=== PATIENT | female | born 2005 | race Caucasian/White ===

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

== ENCOUNTER 2024-01-14 08:17 | Outpatient (OUT) | payer MEDICAID, SELFPAY ==
--- OUTSIDE RECORDS SUMMARY | 2024-01-14 08:36 | XMS_ITS | CCD ---
Author Organization [facility] Care Team Providers Care Jet Inspector Name Role Phone DR JENNA SUMMERS Primary Care Unavailable DR LEBRON HYATT Consulting Unavailable CAMILLA PLEITEZ Attending Unavailable MAIK, CAMILLA Admitting Unavailable CAMILLA PLEITEZ Consulting Unavailable TREVER [...] Test Name Value Interpretation Reference Range Facil itlokesh CARDIAC CHASITY ADMITon 023 CK [Catalytic activity/Vol] 68 U/L Normal 26-192 [facility] Comment on above: Performed By: #### B KATHRIN DIAZ #### [facility] [address] [address] [address] Leilani Bess CK.MB [Mass/Vol] ng/mL Normal <=3.60 [facility] Comment on above: Performed By: #### B JOE CMADM #### [facility] [address] [address] [address] Leilani Bess HSTROP <4.0 Normal 4.0-51.3 [facility] Comment on above: Result Comment: CUT- OFF POINTS HAVE BEEN ESTABLISHED BASED ON THE FOURTH UNIVERSAL DEFINITIONS OF MYOCARDIAL INFARCTION. THE UPPER REFERENCE LIMIT (URL) OF TROPONIN, DEFINED THE 99TH PERCENTILE OF cTnI DISTRIBUTION IN A REFERENCE POPULATION, HAS BEEN CONFIRMED THE DECISION THRESHOLD FOR VA DIAGNOSIS. Performed By: #### B MP, CMADM #### [facility] [address] [place] [address] Dr. Leilani Bess LASHONDA 19 ng/mL Normal 9-82 [facility] Comment on above: Performed By: #### B MP, CMADM #### [facility] [address] [place] [address] Dr. Leilani Bess CBC AUTO DIFFon 10-25-2022 BASO # 0.0 103/ul Normal 0.0-0.1 [facility] Comment on above: Performed By: #### C BC #### [facility] [address] [place] [address] Dr. Leilani Bess Basophils/100 WBC (Bld) 0.3 % Normal 0.2-2.0 [facility] Comment on above: Performed By: #### C BC #### [facility] [address] [place] [address] Dr. Leilani Bess EO # 0.2 103/ul Normal 0.0-0.7 [facility] Comment on above: Performed By: #### C BC #### [facility] [address] [place] [address] Dr. Leilani Bess Eosinophils/100 WBC (Bld) 1.8 % Normal 0.9-7.0 [facility] Comment on above: Performed By: #### C BC #### [facility] [address] [place] [address] Dr. Leilani Bess Erythrocyte distribution width (RBC) [Ratio] 12.2 % Normal 11.0-15.0 [facility] Comment on above: Performed By: #### C BC #### [facility] [address] [place] [address] Dr. Leilani Bess Hematocrit (Bld) [Volume fraction] 41.1 % Normal 36.0-48.0 [facility] Comment on above: Performed By: #### C BC #### [facility] [address] [place] [address] Dr. Leilani Bess Hemoglobin (Bld) [Mass/Vol] 13.4 g/dL Normal 12.0-16.0 [facility] Comment on above: Performed By: #### C BC #### [facility] [address] [place] [address] Dr. Leilani Bess IG # 0.03 10e3/ul Normal 0.00-0.03 [facility] Comment on above: Performed By: #### C BC #### [facility] [address] [place] [address] Dr. Leilani Bess IG % 0.3 % Normal 0.0-0.5 [facility] Comment on above: Performed By: #### C BC #### [facility] [address] [place] [address] Dr. Leilani Bess LYMPH # 2.7 103/ul Normal 1.2-3.8 [facility] Comment on above: Performed By: #### C BC #### [facility] [address] [place] [address] Dr. Leilani Bess Lymphocytes/100 WBC (Bld) 31.3 % Normal 20.5-60.0 [facility] Comment on above: Performed By: #### C BC #### [facility] [address] [place] [address] Dr. Leilani Bess MANUAL DIFF REQ NO Normal [facility] Comment on above: Performed By: #### C BC #### [facility] [address] [place] [address] Dr. Leilani Bess MCH (RBC) [Entitic mass] 29.5 pg Normal 26.7-34.0 [facility] Comment on above: Performed By: #### C BC #### [facility] [address] [place] [address] Dr. Leilani Bess MCHC (RBC) [Mass/Vol] 32.6 g/dL Normal 29.9-35.2 [facility] Comment on above: Performed By: #### C BC #### [facility] [address] [place] [address] Dr. Leilani Bess MCV (RBC) [Entitic vol] 90.3 fL Normal 81.0-99.0 [facility] Comment on above: Performed By: #### C BC #### [facility] [address] [address] [address] Leilani Bess MONO # 0.7 103/ul Normal 0.3-0.8 [facility] Comment on above: Performed By: #### C BC #### [facility] [address] [address] [address] Leilani Bess Monocytes/100 WBC (Bld) 8.4 % Normal 1.7-12.0 [facility] Comment on above: Performed By: #### C BC #### [facility] [address] [place] [address] Dr. Leilani Bess NEUT # 5.0 103/ul Normal 1.4-6.5 [facility] Comment on above: Performed By: #### C BC #### [facility] [address] [place] [address] Dr. Leilani Bess Neutrophils/100 WBC (Bld) 57.9 % Normal 43.0-75.0 [facility] Comment on above: Performed By: #### C BC #### [facility] [address] [place] [address] Dr. Leilani Bess Platelet mean volume (Bld) [Entitic vol] 9.6 fL Normal 9.5-13.5 [facility] Comment on above: Performed By: #### C BC #### [facility] [address] [place] [address] Dr. Leilani Bess PLT 381 103/ul Normal 150-450 [facility] Comment on above: Performed By: #### C BC #### [facility] [address] [place] [address] Dr. Leilani Bess RBC 4.55 106/ul Normal 4.20-5.40 [facility] Comment on above: Performed By: #### C BC #### [facility] [address] [place] [address] Dr. Leilani Bess WBC 8.7 103/ul Normal 4.0-11.0 [facility] Comment on above: Performed By: #### C BC #### [facility] [address] [place] [address] Dr. Leilani Bess D-DIMERon 10-25-2022 D-DIMER 0.42 mg/L FEU Normal <=0.59 [facility] Comment on above: Performed By: #### D DIM #### [facility] [address] [place] [address] Dr. Leilani Bess D-DIMER COMMENTS SEE BELOW Normal [facility] Comment on above: Result Comment: Incr [...] hospitalization. Performed By: #### D DIM #### [facility] [address] [place] [address] Dr. Leilani Bess PROF CHEM 8 (BAS METB)on Anion gap [Moles/Vol] 13.3 mmol/L Normal [facility] Comment on above: Performed By: #### B KATHRIN DIAZ #### [facility] [address] [place] [address] Dr. Leilani Bess Calcium [Mass/Vol] 8.9 mg/dL Normal 8.5-10.1 [facility] Comment on above: Performed By: #### B KATHRIN DIAZ #### [facility] [address] [place] [address] Dr. Leilani Bess Chloride [Moles/Vol] 102 mmol/L Normal 98-107 [facility] Comment on above: Performed By: #### B KATHRIN DIAZ #### [facility] [address] [place] [address] Dr. Leilani Bess CO2 [Moles/Vol] 26.1 mmol/L Normal 21.0-32.0 [facility] Comment on above: Performed By: #### B KATHRIN DIAZ #### [facility] [address] [address] [address] Leilani Bess Creatinine [Mass/Vol] 0.69 mg/dL Normal 0.55-1.02 [facility] Comment on above: Performed By: #### B KATHRIN DIAZ #### [facility] [address] [place] [address] Dr. Leilani Bess EGFR-AF [place] >60 Normal >=60 [facility] Comment on above: Performed By: #### B JOE, KATHRIN #### [facility] [address] [address] [address] Leilani Bess EGFR-NON AF [place] >60 Normal >=60 [facility] Comment on above: Performed By: #### B KATHRIN DIAZ #### [facility] [address] [address] [address] Leilani Bess Glucose [Mass/Vol] 110 mg/dL Critically high 74-106 [facility] Comment on above: Performed By: #### B KATHRIN DIAZ #### [facility] [address] [address] [address] Leilani Bess Potassium [Moles/Vol] 3.4 mmol/L Critically low 3.5-5.1 [facility] Comment on above: Performed By: #### B KATHRIN DIAZ #### [facility] [address] [place] [address] Dr. Leilani Bess Sodium [Moles/Vol] 138 mmol/L Normal 136-145 [facility] Comment on above: Performed By: #### B KATHRIN DIAZ #### [facility] [address] [place] [address] Dr. Leilani Bess Urea nitrogen [Mass/Vol] 9.0 mg/dL Normal 6.4-19.3 [facility] Comment on above: Performed By: #### B KATHRIN DIAZ #### [facility] [address] [place] [address] Dr. Leilani Bess Urea nitrogen/Creatinine [Mass ratio] 13.0 mg/mg Normal [facility] Comment on above: Performed By: #### B KATHRIN DIAZ #### [facility] [address] [place] [address] [id number] [address] Leilani Bess XR CHEST 1 Von [...] by: TREVER ARGUETA Date: 2022-10-25 06:43 Normal [facility] Encounters Encounter Date Encounter Type Care Provider Facility Start: 10-25-2022 End: 10-25-[address] JENNA SUMMERS Facility: Payers Date Payer Category Payer Medicaid [id number] 1974 Unknown [id number] Summary Purpose Family History No Family History Records Found Advance Directives No Advanced Directives Records Found Additional Source Comments INFORMATION SOURCE (unrecogn ized section and content) DATE CREATED AUTHOR 10/27/2022 [facility] FOR RECORDS PERTAINING TO PATIENTS WHO ARE [...] BE BASED ON THE PRIMARY CLINICAL RECORDS. [facility] [employer] provides no warranty or guarantee of the accuracy or completeness of information in this document.
== END 2024-01-14 08:18 | disposition home or self-care (01) ==
LOC: CARD 08:17
PROVIDERS: PCP Nurse Practitioner Family; Visit Provider Nurse Practitioner Family
DX: R00.2 Palpitations (principal)
CPT/HCPCS: 93242

== ENCOUNTER 2024-03-25 06:26 | Outpatient (OUT) | payer MEDICAID, SELFPAY | END 2024-03-25 06:27 | disposition home or self-care (01) | PROVIDERS: PCP Nurse Practitioner Family; Visit Provider Internal Medicine Cardiovascular Disease | DX: R00.0 Tachycardia, unspecified (principal); R55 Syncope and collapse | CPT/HCPCS: 36415; 82533 ==

== ENCOUNTER 2024-03-27 13:39 | Outpatient (OUT) | payer MEDICAID, SELFPAY ==
--- NOTE | 2024-03-27 13:55 | CA_ITS ---
Patient Name: IKER ZULETA MR#: [id number] : 2005 Exam Date: 03/27/2024 Ordering Doctor: FEDERICA PALACIOS ECHOCARDIOGRAM REPORT PROCEDURE: CA ECHO DOPPLER COMPLETE INDICATIONS: Abnormal EKG, Tachycardia, Precordial pain COMPARISON: None. DESCRIPTION: COMPLETE ECHOCARDIOGRAM Real-time transthoracic echocardiography with 2D, M-mode, spectral and color flow Doppler performed. QUALITY: Technical quality was good. LEFT VENTRICLE: Normal chamber size. Normal left ventricular wall thickness. Global left ventricular systolic function is normal. LV EF: Estimated left ventricular ejection fraction is 60%. DIASTOLIC: Normal diastolic function. ATRIAL SEPTUM: LEFT ATRIUM: Normal chamber size. RIGHT ATRIUM: Normal chamber size. RIGHT VENTRICLE: Normal chamber size. Normal right ventricular systolic function. TRICUSPID VALVE: Normal mobility and thickness. No stenosis with trivial regurgitation. No evidence of pulmonary hypertension. RVSP 25 mmHg MITRAL VALVE: Normal mobility and thickness. No evidence of mitral valve stenosis. There is no mitral annular calcification. Trivial mitral regurgitation. AORTIC VALVE: Normal trileaflet appearance. No visible sclerosis. Normal leaflet mobility. No evidence of aortic valve stenosis. No aortic regurgitation. AORTIC ROOT: Normal diameter and appearance. PULMONIC VALVE: Normal thickness and mobility. No stenosis. Trivial regurgitation. PERICARDIUM: No evidence of pericardial effusion. IVC: Collapses with inspirations. Normal size. PLEURA: CONCLUSION: 1. Normal ventricular size and systolic function. LVEF is 60%. 2. Normal diastolic function. 3. No significant valvular dysfunction. 4. No pericardial effusion. Adult Echocardiography Procedure Report Left Ventricle LVEDD (3.7 - 5.6 cm): 4.35 cm LVESD (2.2 - 4.0 cm): 2.68 cm LVIVS thickness (0.6 - 1.2 cm): 0.77 cm LVPW thickness (0.5 - 1.0 cm): 0.85 cm e': 0.18 m/s E - e': 3.83 LVOT Max Gradient: 4.32 mm[Hg] LVOT Area (cm2): 1.04 m/s Peak Velocity (LVOT): 1.04 m/s Mean Velocity (LVOT): 0.69 m/s LVOT Diameter 1.96 cm Left Ventricular Ejection Fraction: 60 % Left Atrium LA Volume Index (2D A2C): 19.19 ml/m2 Left Atrium Systolic Dimension: 3.81 cm Mitral Valve MV E to A Ratio: 1.51, 1.52 Mitral Valve A-Wave Peak Velocity: 0.47 m/s Mitral Valve E-Wave Peak Velocity: 0.71 m/s Right Ventricle RV Internal Diastolic Dimension: 3.05 cm Aorta AO Root Diam: 2.81 cm Ascending Ao Diam: 2.54 cm Aortic Valve AoV Area (Peak [place]): 2.29 cm2, 2.29 cm2 AoV Area (VTI): 2.04 cm2, 2.04 cm2 Peak Velocity(Antegrade Flow): 1.37 m/s Peak Gradient(Antegrade Flow): 7.50 mm[Hg] Mean Velocity(Antegrade Flow): 0.95 m/s Mean Gradient(Antegrade Flow): 4.13 mm[Hg] Velocity Time Integral: 29.88 cm Tricuspid Valve Peak Velocity (Regurgitant Flow): 2.36 m/s, 2.25 m/s Pulmonic Valve Mean Gradient: 4.02 mm[Hg], 2.40 mm[Hg], 3.02 mm[Hg] Mean Velocity: 0.97 m/s, 0.72 m/s, 0.84 m/s Peak Velocity: 1.10 m/s Peak Gradient: 5.85 mm[Hg], 4.39 mm[Hg], 4.39 mm[Hg] Right Atrium Right Atrium Systolic Pressure: 39.91 ml, 39.91 ml Dictated by: Monster Rosario M.D. on 03/27/2024 at 17:59 Approved by: Monster Rosario M.D. on 03/27/2024 at 18:02
== END 2024-03-27 13:40 | disposition home or self-care (01) ==
LOC: CARD 13:40
PROVIDERS: PCP Nurse Practitioner Family; Visit Provider Internal Medicine Cardiovascular Disease
DX: R94.31 Abnormal electrocardiogram [ECG] [EKG] (principal); R00.0 Tachycardia, unspecified; R07.2 Precordial pain
CPT/HCPCS: 93306

== ENCOUNTER 2024-12-06 08:30 | Outpatient (OUT) | payer MEDICAID, SELFPAY ==
--- OUTSIDE RECORDS SUMMARY | 2024-12-06 08:35 | XMS_ITS | CCD ---
Author Organization 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 Name Role Phone DR JENNA SUMMERS Primary Care Unavailable DR LEBRON HYATT Consulting Unavailable CAMILLA PLEITEZ Attending Unavailable CAMILLA PLEITEZ Admitting Unavailable CAMILLA PLEITEZ Consulting Unavailable TREVER ARGUETA Consulting Unavailable FEDERICA PALACIOS Attending Unavailable FEDERICA PALACIOS Attending Unavailable Problems Problem Classification Problem Date Documented Date Episodic/Chronic Anxiety disorders (1 source) Anxiety disorder, unspecified; Translations: [ANXIETY DISORDER UNSPECIFIED] Onset: 10-26-2022 Chronic Cardiac dysrhythmias (4 sources) Palpitations; Translations: [Tachycardia, unspecified] Onset: 02-14-2024 Episodic Nonspecific chest pain (6 sources) Chest pain, unspecified; Translations: [Precordial pain] Onset: 10-25-2022 Episodic Nutritional deficiencies (2 sources) Vitamin D deficiency, unspecified; Translations: [Vitamin D deficiency, unspecified] Onset: 02-14-2024 Chronic Other nutritional; endocrine; and metabolic disorders (2 sources) Other obesity due to excess calories; Translations: [Other obesity due to excess calories] Onset: 02-14-2024 Chronic Other nutritional; endocrine; and metabolic disorders (2 sources) Body mass index (BMI) 31.0-31.9, adult; Translations: [Body mass index (BMI) 31.0-31.9, adult] Onset: 02-14-2024 Chronic Other screening for suspected conditions (not mental disorders or infectious disease) (2 sources) Abnormal electrocardiogram [ECG] [EKG]; Translations: [Abnormal electrocardiogram (ECG) (EKG)] Onset: 02-14-2024 Episodic Pleurisy; pneumothorax; pulmonary collapse (1 source) Pleurisy; Translations: [PLEURISY] Onset: 10-26-2022 Episodic Spondylosis; intervertebral disc disorders; other back problems (1 source) Dorsalgia, unspecified; Translations: [DORSALGIA UNSPECIFIED] Onset: 10-26-2022 Episodic Syncope (2 sources) Syncope and collapse; Translations: [Syncope and collapse] Onset: 02-14-2024 Episodic Results Test Name Value Interpretation Reference Range Facil ity Office Visiton 03-31-2024 Follow-up visit [id number] Ania Mcgowan 2005 F Date Provider Department Center 03/31/2024 FEDERICA ROSARIO [facility] Family History Problem Relation Age of Onset No Known Problems Mother No Known Problems Father Other Sister Family Status - Relation Status Age at Mother Father Sister Level of Service:52990 [place] OFFICE/OUTPATIENT ESTABLISHED MOD MDM 30 MIN Normal [facility] Office Visiton 02-14-2024 Follow-up visit [id number] Ania Mcgowan 2005 F Date Provider Department Center 02/14/2024 FEDERICA ROSARIO [facility] Family History Problem Relation Age of Onset No Known Problems Mother No Known Problems Father Other Sister Family Status - Relation Status Age at Mother Father Sister Level of Service:84730 [place] OFFICE/OUTPATIENT NEW MODERATE MDM 45 MINUTES Normal [facility] CARDIAC CHASITY ADMITon 023 CK [Catalytic activity/Vol] 68 U/L Normal 26-192 [facility] Comment on above: Performed By: #### B JOE, CMADM #### [facility] [address] [address] [address] Leilani Bess CK.MB [Mass/Vol] ng/mL Normal <=3.60 [facility] Comment on above: Performed By: #### B MP, CMADM #### [facility] [address] [place], [place] [address] Dr. Leilani Bess HSTROP <4.0 Normal 4.0-51.3 [facility] Comment on above: Result Comment: CUT- OFF POINTS HAVE BEEN ESTABLISHED BASED ON THE FOURTH UNIVERSAL DEFINITIONS OF MYOCARDIAL INFARCTION. THE UPPER REFERENCE LIMIT (URL) OF TROPONIN, DEFINED THE 99TH PERCENTILE OF cTnI DISTRIBUTION IN A REFERENCE POPULATION, HAS BEEN CONFIRMED THE DECISION THRESHOLD FOR PA DIAGNOSIS. Performed By: #### B JOE, CMADM #### [facility] [address] [address] [address] Leilani Bess LASHONDA 19 ng/mL Normal 9-82 [facility] Comment on above: Performed By: #### B JOE, CMADM #### [facility] [address] [address] [address] Leilani Bess CBC AUTO DIFFon 10-25-2022 BASO # 0.0 103/ul Normal 0.0-0.1 [facility] Comment on above: Performed By: #### C BC #### [facility] [address] [place] [address] Dr. Leilani Bess Basophils/100 WBC (Bld) 0.3 % Normal 0.2-2.0 [facility] Comment on above: Performed By: #### C BC #### [facility] [address] [place] [address] Dr. Leilani Bess EO # 0.2 103/ul Normal 0.0-0.7 [facility] Comment on above: Performed By: #### C BC #### [facility] [address] [place] [address] Dr. Leilani Bess Eosinophils/100 WBC (Bld) 1.8 % Normal 0.9-7.0 [facility] Comment on above: Performed By: #### C BC #### [facility] [address] [place] [address] Dr. Leilani Bess Erythrocyte distribution width (RBC) [Ratio] 12.2 % Normal 11.0-15.0 [facility] Comment on above: Performed By: #### C BC #### [facility] [address] [place] [address] Dr. Leilani Bess Hematocrit (Bld) [Volume fraction] 41.1 % Normal 36.0-48.0 [facility] Comment on above: Performed By: #### C BC #### [facility] [address] [place] [address] Dr. Leilani Bess Hemoglobin (Bld) [Mass/Vol] 13.4 g/dL Normal 12.0-16.0 [facility] Comment on above: Performed By: #### C BC #### [facility] [address] [place] [address] Dr. Leilani Bess IG # 0.03 10e3/ul Normal 0.00-0.03 [facility] Comment on above: Performed By: #### C BC #### [facility] [address] [place] [address] Dr. Leilani Bess IG % 0.3 % Normal 0.0-0.5 [facility] Comment on above: Performed By: #### C BC #### [facility] [address] [place] [address] Dr. Leilani Bess LYMPH # 2.7 103/ul Normal 1.2-3.8 [facility] Comment on above: Performed By: #### C BC #### [facility] [address] [place] [address] Dr. Leilani Bess Lymphocytes/100 WBC (Bld) 31.3 % Normal 20.5-60.0 [facility] Comment on above: Performed By: #### C BC #### [facility] [address] [place] [address] Dr. Leilani Bess MANUAL DIFF REQ NO Normal [facility] Comment on above: Performed By: #### C BC #### [facility] [address] [place] [address] Dr. Leilani Bess MCH (RBC) [Entitic mass] 29.5 pg Normal 26.7-34.0 [facility] Comment on above: Performed By: #### C BC #### [facility] [address] [place] [address] Dr. Leilani Bess MCHC (RBC) [Mass/Vol] 32.6 g/dL Normal 29.9-35.2 [facility] Comment on above: Performed By: #### C BC #### [facility] [address] [place] [address] Dr. Leilani Bess MCV (RBC) [Entitic vol] 90.3 fL Normal 81.0-99.0 [facility] Comment on above: Performed By: #### C BC #### [facility] [address] [place] [address] Dr. Leilani Bess MONO # 0.7 103/ul Normal 0.3-0.8 [facility] Comment on above: Performed By: #### C BC #### [facility] [address] [place] [address] Dr. Leilani Bess Monocytes/100 WBC (Bld) 8.4 % Normal 1.7-12.0 [facility] Comment on above: Performed By: #### C BC #### [facility] [address] [place] [address] Dr. Leilani Bess NEUT # 5.0 103/ul Normal 1.4-6.5 [facility] Comment on above: Performed By: #### C BC #### [facility] [address] [place] [address] Dr. Leilani Bess Neutrophils/100 WBC (Bld) 57.9 % Normal 43.0-75.0 [facility] Comment on above: Performed By: #### C BC #### [facility] [address] [place] [address] Dr. Leilani Bess Platelet mean volume (Bld) [Entitic vol] 9.6 fL Normal 9.5-13.5 [facility] Comment on above: Performed By: #### C BC #### [facility] [address] [place] [address] Dr. Leilani Bess PLT 381 103/ul Normal 150-450 [facility] Comment on above: Performed By: #### C BC #### [facility] [address] [place] [address] Dr. Leilani Bess RBC 4.55 106/ul Normal 4.20-5.40 [facility] Comment on above: Performed By: #### C BC #### [facility] [address] [place] [address] Dr. Leilani Bess WBC 8.7 103/ul Normal 4.0-11.0 [facility] Comment on above: Performed By: #### C BC #### [facility] [address] [place] [address] Dr. Leilani Bess D-DIMERon 10-25-2022 D-DIMER 0.42 mg/L FEU Normal <=0.59 [facility] Comment on above: Performed By: #### D DIM #### [facility] [address] [place] [address] Dr. Leilani Bess D-DIMER COMMENTS SEE BELOW Normal [facility] Comment on above: Result Comment: Incr [...] hospitalization. Performed By: #### D DIM #### [facility] [address] [place] [address] Dr. Leilani Bess PROF CHEM 8 (BAS METB)on Anion gap [Moles/Vol] 13.3 mmol/L Normal [facility] Comment on above: Performed By: #### B KATHRIN DIAZ #### [facility] [address] [place] [address] Dr. Leilani Bess Calcium [Mass/Vol] 8.9 mg/dL Normal 8.5-10.1 [facility] Comment on above: Performed By: #### B KATHRIN DIAZ #### [facility] [address] [place] [address] Dr. Leilani Bess Chloride [Moles/Vol] 102 mmol/L Normal 98-107 [facility] Comment on above: Performed By: #### B KATHRIN DIAZ #### [facility] [address] [place] [address] Dr. Leilani Bess CO2 [Moles/Vol] 26.1 mmol/L Normal 21.0-32.0 [facility] Comment on above: Performed By: #### B KATHRIN DIAZ #### [facility] [address] [place] [address] Dr. Leilani Bess Creatinine [Mass/Vol] 0.69 mg/dL Normal 0.55-1.02 [facility] Comment on above: Performed By: #### B JOE, KATHRIN #### [facility] [address] [address] [address] Leilani Bess EGFR-AF DANISH >60 Normal >=60 [facility] Comment on above: Performed By: #### B JOE, VIVIENDM #### [facility] [address] [address] [address] Leilani Bess EGFR-NON AF DANISH >60 Normal >=60 [facility] Comment on above: Performed By: #### B JOE, KATHRIN #### [facility] [address] [place] [address] Dr. Leilani Bess Glucose [Mass/Vol] 110 mg/dL Critically high 74-106 [facility] Comment on above: Performed By: #### B KATHRIN DIAZ #### [facility] [address] [place] [address] Dr. Leilani Bess Potassium [Moles/Vol] 3.4 mmol/L Critically low 3.5-5.1 [facility] Comment on above: Performed By: #### B KATHRIN DIAZ #### [facility] [address] [place] [address] Dr. Leilani Bess Sodium [Moles/Vol] 138 mmol/L Normal 136-145 [facility] Comment on above: Performed By: #### B JOE, KATHRIN #### [facility] [address] [place] [address] Dr. Leilani Bess Urea nitrogen [Mass/Vol] 9.0 mg/dL Normal 6.4-19.3 [facility] Comment on above: Performed By: #### B KATHRIN DIAZ #### [facility] [address] [place] [address] Dr. Leilani Bess Urea nitrogen/Creatinin e [Mass ratio] 13.0 mg/mg Normal [facility] Comment on above: Performed By: #### B KATHRIN DIAZ #### [facility] [address] [place] [address] Dr. Leilani Bess XR CHEST 1 Von [...] by: TREVER ARGUETA Date: 2022-10-25 06:43 Normal [facility] Encounters Encounter Date Encounter Type Care Provider Facility Start: 03-31-2024 End: 03-31-2024 ambulatory [facility] Start: 02-14-2024 End: 02-14-2024 ambulatory [facility] Start: 10-25-2022 End: 10-25-[address] JENNA SUMMERS Facility: Payers Date Payer Category Payer Medicaid [id number] 2022 Medicaid [id number] 1974 Unknown [id number] Progress note 03-31-2024 Note Date & Type Note Facility 03-31-2024 Note [facility] Note Reason for cardiology consult: Patient here for follow up labs and echo. Chief Complaint: Dizziness and shortness of breath HPI: Ania Mcgowan is a 18 y.o. female who is here today for follow-up visit. She states that she still feels lightheaded all the time and shortness of breath when she stands for a long time. She has been walking every day for about 30 minutes and she thinks that she is able to walk persistently for a longer period of time. She denies any syncope. She has been increasing her fluid intake and salt intake. She did not receive the compression stockings yet. She is willing to retry Lexapro since it helped with her symptoms in the 02/14/2024 visit Ania Mcgowan is a 18 y.o. female, she states that since she was in elementary school she always felt that she was overheated when she is outside especially in the sun then she passes out. This has been going on all her life. She states every time she is standing particularly in the sun even if she was inside she feels heated, dizzy and she has chest pain sometimes pressure sometimes shooting pain, sometimes she feels little nauseated then she passes out and she wakes up on the ground. 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 Usually she sits down and sometimes she has a fan on to help her not to pass out. She does not drink any caffeine. She always drinks a lot of fluids. She does not drink any alcohol. She denies any illicit drugs. That never happened while she is sitting or driving. Sometimes when she is sitting she feels that her heart rate goes up. Recently she had blood tests all of them were normal except low vitamin D and she is started on vitamin D 5000 units daily. Also she lost about 30 pounds over the last few months by watching her diet and moving more during her job. Also she had a 5-day Holter monitor which showed sinus rhythm and occasional sinus tachycardia. She had few triggered events most of them showed sinus tachycardia. She does not exercise on a regular basis because she gets heated quickly and she feels dizzy. She states that when she was on Lexapro for 1 year she did not have any syncopal episodes but she gained weight therefore she stopped it. She denies exertional dyspnea. She denies orthopnea or paroxysmal nocturnal dyspnea or legs edema or leg discomfort with exertion. She was told that she snores occasionally. She feels little sleepy during the daytime but does not fall asleep quickly. She is not aware that she stops breathing. Her sister had POTS but her symptoms were milder and she feels better now. She is currently 19 years old Past Medical History She has a past medical history of Constipation, Diarrhea, Nausea, and Palpitations. Surgical History She has no past surgical history on file. Social History She reports that she has never smoked. She has never used smokeless tobacco. She reports that she does not currently use alcohol. No history on file for drug use. Family History Family History Problem Relation Name Age of Onset No Known Problems Mother No Known Problems Father Other (POTS) Sister Allergies Patient has no known allergies. Medications Current Outpatient Medications: ergocalciferol, vitamin D2, (VITAMIN D2 ORAL), Take 5,000 Units by mouth in the morning., Disp: , Rfl: Last Recorded Vitals Visit Vitals Smoking Status Never Physical Examination: GENERAL: alert and oriented x3, well developed, in no acute distress. HEAD: atraumatic, normocephalic. EYES: LUKE, EOMI. NECK: trachea midline, no JVD present, no carotid bruits present. CARDIAC: S1, S2 present. RRR. No murmur, rubs, or gallops. RESPIRATORY: CTAB, no increased effort of breathing, no rales, rhonchi, or wheezing. ABDOMEN: soft, nontender, nondistended. EXTREMITIES: no lower extremity edema, peripheral pulses are 2+ bilaterally. No rash/skin discoloration present. NEURO: strength/sensation equal and symmetric in bilateral upper and lower extremities. PSYCH: appropriate mood, affect, and judgement. Labs: White blood count 7.3, hemoglobin 13, hematocrit 39, platelets 466 Sodium 140, potassium 4, BUN 9, creatinine 0.78, glucose 91, GFR above 60, calcium 8.9 HbA1c 5.2% Insulin 22.5 normal Total protein 8.3, albumin 3.7, total bilirubin 0.5, AST 22, ALT 38 Vitamin D 18.3 low Triglyceride 39, cholesterol 175, LDL 119, HDL 49 TSH 2.003, free T46.4, free T32.92 Last Images: Echo 03/27/2024 EKG today 02/14/2024 showed normal sinus rhythm, heart rate 82 bpm, short TX interval, inverted T waves in leads V1 to V3, consider anteroseptal ischemia, abnormal EKG EKG 10/25/2022 showed sinus tachycardia, low voltage, nonspecific ST changes. 5 day Holter 01/28/2024 Assessment and Plan: 1. Syncope and collapse, clinically appears to represents neurocar (more content not included)... [facility] Progress note 02-14-2024 Note Date & Type Note Facility 02-14-2024 Note New patient here to establish care. She is referred from Fanta Monzon CNP for tachycardia. Recently wore 5 day Holter monitor. She gets episodes of syncope, palpitations, chest pain, and lightheadedness. States she stays hydrated but her body feels like it overheats very quickly and easily . Her sister has POTS she says. No cardiac issues within her family members that she's aware of. Her HR did jump up to 126 when she stood up in the office today, but quickly went back down to 92. Review of Systems Cardiovascular: Positive for chest pain ( electrical shocks ), dyspnea on exertion, irregular heartbeat, palpitations and syncope. Respiratory: Positive for cough and shortness of breath. Neurological: Positive for dizziness, headaches and light-headedness. Allergic/Immunologic: Positive for environmental allergies. All other systems reviewed and are negative. [facility] Progress note 02-14-2024 Note Date & Type Note Facility 02-14-2024 Note [facility] Note Reason for cardiology consult: Syncope, palpitation, and chest pain Chief Complaint: Dizziness, chest pain, palpitation, and syncope HPI: Ania Mcgowan is a 18 y.o. female, she states that since she was in elementary school she always felt that she was overheated when she is outside especially in the sun then she passes out. This has been going on all her life. She states every time she is standing particularly in the sun even if she was inside she feels heated, dizzy and she has chest pain sometimes pressure sometimes shooting pain, sometimes she feels little nauseated then she passes out and she wakes up on the ground. 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 Usually she sits down and sometimes she has a fan on to help her not to pass out. She does not drink any caffeine. She always drinks a lot of fluids. She does not drink any alcohol. She denies any illicit drugs. That never happened while she is sitting or driving. Sometimes when she is sitting she feels that her heart rate goes up. Recently she had blood tests all of them were normal except low vitamin D and she is started on vitamin D 5000 units daily. Also she lost about 30 pounds over the last few months by watching her diet and moving more during her job. Also she had a 5-day Holter monitor which showed sinus rhythm and occasional sinus tachycardia. She had few triggered events most of them showed sinus tachycardia. She does not exercise on a regular basis because she gets heated quickly and she feels dizzy. She states that when she was on Lexapro for 1 year she did not have any syncopal episodes but she gained weight therefore she stopped it. She denies exertional dyspnea. She denies orthopnea or paroxysmal nocturnal dyspnea or legs edema or leg discomfort with exertion. She was told that she snores occasionally. She feels little sleepy during the daytime but does not fall asleep quickly. She is not aware that she stops breathing. Her sister had POTS but her symptoms were milder and she feels better now. She is currently 19 years old Cardiology ROS: GENERAL: Denies fever, chills, night sweats, weight loss. HEENT: Denies changes in vision, photophobia, changes in hearing, epistaxis, oral bleeding. CARDIOVASCULAR: She reports dizziness when she is standing up particularly in hot environment associated with chest pain and palpitation many times it ends up with passing out, she denies exertional dyspnea, orthopnea/PND, lower extremity edema, RESPIRATORY: Denies SOB, coughing, wheezing GI: Denies abdominal pain, nausea/vomiting, heartburn, melena/hematochezia. RENAL: Denies dysuria, hematuria, flank pain. MSK: Denies muscle weakness/pain, arthralgias/joint pain. NEUROLOGIC: Denies LOC, weakness, numbness, headaches. SKIN: Denies abnormal rashes or bleeding. PSYCH: Denies significant anxiety, depression, sleep disturbances. Past Medical History She has a past medical history of Constipation, Diarrhea, Nausea, and Palpitations. Surgical History She has no past surgical history on file. Social History She reports that she has never smoked. She has never used smokeless tobacco. She reports that she does not currently use alcohol. No history on file for drug use. Family History Family History Problem Relation Name Age of Onset No Known Problems Mother No Known Problems Father Other (POTS) Sister Allergies Patient has no known allergies. Medications Current Outpatient Medications: ergocalciferol, vitamin D2, (VITAMIN D2 ORAL), Take 5,000 Units by mouth in the morning., Disp: , Rfl: Last Recorded Vitals Visit Vitals 02/14/2024 10:35 AM 02/14/2024 10:42 AM 02/14/2024 10:43 AM Excluded from GC Excluded from GC Excluded from GC BP 108/72 122/78 128/78 BP Location Right arm Right arm Right arm Patient Position Lying Sitting Standing Pulse 87 90 92 SpO2 100 % Weight 88.5 kg (195 lb) Height 1.676 m (5' 6 ) Age Percentiles Weight 97 % (Z= 1.87) Height 75 % (Z= 0.67) BMI 95 % (Z= 1.66) Other Vitals BMI 31.47 kg/m2 BSA 2.03 m2 BP 128/78 (BP Location: Right arm, Patient Position: Standing) Pulse 92 Ht 1.676 m (5' 6 ) Wt 88.5 kg (195 lb) SpO2 100% BMI 31.47 kg/m??? Smoking Status Never BSA 2.03 m??? Physical Examination: GENERAL: alert and oriented x3, well developed, in no acute distress. HEAD: atraumatic, normocephalic. EYES: LUKE, EOMI. NECK: trachea midline, no JVD present, no carotid bruits present. CARDIAC: S1, S2 present. RRR. No murmur, rubs, or gallops. RESPIRATORY: CTAB, no increased effort of breathing, no rales, rhonchi, or wheezing. ABDOMEN: soft, nontender, nondistended. EXTREMITIES: no lower extremity edema, peripheral pulses are 2+ bilaterally. No rash/skin discoloration present. NEURO: strength/sensation equal and s (more content not included)... [facility] [facility] Purpose Family History No Family History Records FoundNo Family History Records Found Advance Directives No Advanced Directives Records FoundNo Advanced Directives Records Found Additional Source Comments INFORMATION SOURCE (unrecogn ized section and content) DATE CREATED AUTHOR 10/27/2022 [facility] DATE CREATED AUTHOR AUTHOR'S ORGANIZ ATION 04/04/[address] [facility] FOR RECORDS PERTAINING TO PATIENTS [...] BE BASED ON THE PRIMARY CLINICAL RECORDS. [facility]. provides no warranty or guarantee of the accuracy or completeness of information in this document.
[2024-12-06 08:50] LABS: Basophils Percent Auto 0.8 % (0.2-2.0); Eosinophils Absolute Auto 0.1 10^3/uL (0.0-0.7); Eosinophils Percent Auto 2.1 % (0.9-7.0); Hematocrit 39.9 % (36.0-48.0); Hemoglobin 13.7 g/dL (12.0-16.0); Immature Granulocytes Abs Auto 0.01 10^3/uL (0.00-0.03); Immature Granulocytes Pct Auto 0.2 % (0.0-0.5); Lymphocytes Absolute Auto 1.6 10^3/uL (1.2-3.8); Lymphocytes Percent Auto 30.2 % (20.5-60.0); Mean Corpuscular HGB Conc 34.3 g/dL (29.9-35.2); Mean Corpuscular Hemoglobin 30.2 pg (26.7-34.0); Mean Corpuscular Volume 88.1 fL (81.0-99.0); Monocytes Absolute Auto 0.4 10^3/uL (0.3-0.8); Monocytes Percent Auto 7.9 % (1.7-12.0); Neutrophils Absolute Auto 3.1 10^3/uL (1.4-6.5); Neutrophils Percent Auto 58.8 % (43.0-75.0); Platelet Count 297 10^3/uL (150-450); Red Blood Count 4.53 10^6/uL (4.20-5.40); White Blood Count 5.3 10^3/uL (4.0-11.0)
[2024-12-06 08:58] LABS: Estimated Average Glucose 100 mg/dL; Glycohemoglobin A1C 5.1 % (4.5-6.2)
[2024-12-06 09:21] LABS: Alanine Aminotransferase 21 U/L (14-59); Albumin Globulin Ratio 0.9; Albumin Level 3.8 g/dL (3.4-5.0); Alkaline Phosphatase 71 U/L (46-116); Anion Gap 11.8; Aspartate Amino Transferase 14 U/L (15-37); BUN Creatinine Ratio 17.1; Bilirubin Total 0.5 mg/dL (0.2-1.0); Calcium 9.1 mg/dL (8.5-10.1); Carbon Dioxide 25.5 mmol/L (21.0-32.0); Chloride 104 mmol/L (98-107); Estimated GFR (African America >60 (>=60 mL/min/1.73m^2); Estimated GFR (Non-African Ame >60 (>=60 mL/min/1.73m^2); Free T3 2.52 pg/mL (2.18-3.98); Globulin 4.3 g/dL; Glucose 93 mg/dL (74-106); Potassium 4.3 mmol/L (3.5-5.1); Sodium 137 mmol/L (136-145); Thyroid Stimulating Hormone 1.846 uIU/mL (0.358-3.740); Total Protein 8.1 g/dL (6.4-8.2)
== END 2024-12-06 08:31 | disposition home or self-care (01) ==
LOC: LAB 08:32
PROVIDERS: PCP Nurse Practitioner Family; Visit Provider Family Medicine
DX: I49.8 Other specified cardiac arrhythmias (principal)
CPT/HCPCS: 36415; 80053; 82306; 83036; 83540; 84436; 84443; 84481; 85025